=== PATIENT | female | born 1965 | race Caucasian/White ===

== ENCOUNTER → 2024-06-21 12:24 | Outpatient (REF) | payer OTHER, SELFPAY | LOC: WDC 12:24 | PROVIDERS: ATTENDING PHYSICIAN Internal Medicine | DX: Z12.31 Encounter for screening mammogram for malignant neoplasm of breast (principal) | CPT/HCPCS: 77063; 77067 ==

== ENCOUNTER → 2025-06-05 08:30 | Outpatient (REF) | payer OTHER, SELFPAY | LOC: PAVMRI 08:30 | PROVIDERS: ATTENDING PHYSICIAN Internal Medicine Cardiovascular Disease; FAMILY PHYSICIAN Internal Medicine | DX: I49.3 Ventricular premature depolarization (principal); I35.9 Nonrheumatic aortic valve disorder, unspecified | CPT/HCPCS: 75561; 75565; A9585 ==

== ENCOUNTER 2025-10-12 14:10 | Emergency (ER) | payer OTHER, SELFPAY ==
[2025-10-12 14:12] VITALS: BP 151/89
--- NOTE | 2025-10-12 17:07 | ED.GENMED ---
History of Present Illness
General
Chief Complaint: Head Injury
Source: patient
Exam Limitations: none
Time Seen by Provider: 10/12/25 16:24
Nursing documentation reviewed up to this point in time: agreed with
History of Present Illness
History of Present Illness:
Patient to the emergency department for evaluation after slip and fall earlier today. She states she was taking trash outside and slipped on ice on the step and fell. She landed on her buttocks and then fell back hitting her head on the step. No
LOC. She is able to get herself up. Ambulating without difficulty. She complains of mild discomfort to buttocks. She is brought to the emergency department by for evaluation. On exam she is awake alert and oriented in no visible distress
Past History
Past History
ED Past Medical History: HTN
Review of Systems
Review of Systems
Allergies reviewed?: Yes
All Other Systems: ROS reviewed and negative except as documented in HPI and ROS
Constitutional: Reports no symptoms
EENT: Reports no symptoms
Respiratory: Reports no symptoms
Cardiac: Reports no symptoms
ABD/GI: Reports no symptoms
: Reports no symptoms
Musculoskeletal: Reports back pain (Low back pain)
Skin: Reports no symptoms
Neurological: Reports no symptoms
Psychiatric: Reports no symptoms
Phy Exam
General Physical Exam
General Presentation: well appearing and no apparent distress
General age: appears stated age
General Skin: warm and dry
General Habitus: normal
General Mental: alert
ENT Exam
ENT Exam: EOMI, TM's normal and neck supple
Eye Exam
Eye Exam: PERRL, EOMI, conjunctiva normal and globe normal
Neurological Exam
Neurological Exam: alert, oriented x3, CN II-XII intact, no motor deficits, no sensory deficits and speech normal
Laura Coma Scale
Eye Opening: Spontaneous
Verbal Response: Oriented
Motor Response: Obeys Commands
GCS Total Score: 15
Mental
Mental Status: oriented to person, oriented to place, oriented to time and usual mental status
Cranial
Cranial Nerves: normal
EOM (CN3/4/6): intact
Motor
Seizure Activity: none
Gait: normal
Tremors: none
Other Movement Disorders: none
Sensory
Sensory Exam: intact
Cerebellar
Cerebellar Function: normal Romberg test
Musculoskeletal Exam
Musculoskeletal Exam: full ROM
Skin Exam
Skin Exam: normal color, warm/dry and no rash
Psychiatric Exam
Psychiatric Exam: normal mood/affect
Course
Orders/Labs/Results
Orders:
Orders
10/12/25 14:[address] [CT Head W/o Iv Contrast] Urgent
Comment:
Reason For Exam: fall
Vital Signs
Initial and Last Documented VS:
Initial Vital Signs
Temp Pulse Resp BP Pulse Ox
97.9 F 99 20 151/89 97
10/12/25 14:12 10/12/25 14:12 10/12/25 14:12 10/12/25 14:12 10/12/25 14:12
Last Documented Vital Signs
Temp Pulse Resp BP Pulse Ox
97.9 F 99 20 151/89 97
10/12/25 14:12 10/12/25 14:12 10/12/25 14:12 10/12/25 14:12 10/12/25 14:12
*Radiology
Radiology exam reviewed: radiology read reviewed
*Pulse Oximetry
SaO2: 97
Oxygen Mode of Delivery: Room air
Patient hypoxic: no
*Critical Care Note
Total Time (30-74mins, 75-104mins- exclusive of procedures): Not Applicable
Update Note
Update Note:
Patient to the emergency department for evaluation after slip and fall at home. States she slipped on ice on a step and fell in back of her head on the step. Neurologically she is at her baseline. Neuroexam is unremarkable. CT of head without
acute findings. She also notes mild discomfort to low back area. She has full range of motion and is ambulatory. Recommend ice and anti-inflammatories. Should be discharged home, follow-up with PCP. She was given instructions on signs and
symptoms to return to the emergency department and she is agreeable to this plan.
ED Attending Note
-
Portions of this chart may have been created with voice recognition software.� Occasional wrong word or��sound alike� substitutions may have occurred due to the inherent limitations of voice recognition software.
Discharge Plan
Departure
Patient Disposition: Home (Routine Discharge)
Date of Disposition: 10/12/25
Time of Disposition: 17:02
Patient with high blood pressure during this ER visit?: No
Condition: Good
Covid-19: Not Applicable
Discharge Problem:
Head injury, Contusion of lower back
Instructions: Concussion, Adult (DC), Head Injury in Adults (DC), Contusion (DC), Cold therapy for pain, Ibuprofen
Referrals:
Daiana Edwards DO [Family Provider, Internal Medicine]
Activity Restrictions/Additional Instructions:
Return to the emergency department for any changes in/worsening of your symptoms.
Interventions
Interventions:
*ED COVID-19 Vaccine History Last Done: 10/12/25 14:12
*ED Influenza Vaccine History Last Done: 10/12/25 14:12
*Risk Screen - Suicide (C-SSRS) Last Done: 10/12/25 14:12
Discharge Date and Time
Print Language: ISRAELI
Musculoskeletal Injury Exam
Musculoskeletal Injury Exam
Lower Back:
Pain with Movement?: Mild
Tender to palpation?: None
Soft tissue swelling?: None
External deformity and angulation?: None
Joint effusion?: None
Contusion?: Mild
Hematoma-local bleeding into tissue?: None
Strain- Sprain- Tear (Connective tissue injury)?: None
Crepitus with movement?: No
Joint instability?: No
Malalignment/deformity?: No
Range of motion: Full
Distal skin color and temperature: normal-warm & good color
Capillary Refill: normal
Normal distal neurovascular exam?: Yes
== END 2025-10-12 17:38 | disposition home or self-care (01) ==
LOC: EMR 14:10
PROVIDERS: EMERGENCY PHYSICIAN Emergency Medicine; FAMILY PHYSICIAN Internal Medicine
DX: S09.90XA Unspecified injury of head, initial encounter (principal); S30.0XXA Contusion of lower back and pelvis, initial encounter; W00.1XXA Fall from stairs and steps due to ice and snow, initial encounter; Y93.01 Activity, walking, marching and hiking; Y92.008 Other place in unspecified non-institutional (private) residence as the place of occurrence of the external cause; I10 Essential (primary) hypertension
CPT/HCPCS: 99284; 70450